=== PATIENT | male | born 1995 | race African-American/Black ===

== ENCOUNTER 2023-01-17 09:54 | Emergency (ER) | payer MEDICAID ==
[~2023-01-17] VITALS: Ht 175.3 cm; Wt 86.2 kg
[2023-01-17 10:00] VITALS: BP_SYST 141
--- NOTE | 2023-01-17 10:00 | NUR ---
BROUGHT BACK TO BED #5, TRIAGED, REPORT GIVEN TO KEY
--- NOTE | 2023-01-17 10:10 | NUR ---
DR MANN AT BEDSIDE FOR EVALUATION
--- NOTE | 2023-01-17 10:15 | NUR ---
Pt bib self from home, ambulated to bed 5. Pt is A&Ox4, able to make needs known. Pt c/o on and off lower back pain for two months. Pt rates pain 3/10 at this time. Pt describes pain as cramping. Pt states pain intensifies upon exertion. Pt denies N/V. Pt denies SOB. Safety measures in place.
[2023-01-17] MEDS ORDERED: METH-634 PO (11:28)
[2023-01-17 11:59] VITALS: BP_SYST 141
--- NOTE | 2023-01-17 12:00 | NUR ---
Patient given written and verbal discharge instructions and verbalizes understanding. ER Dr Sauceda discussed with patient the results and treatment provided. Patient in stable condition. ID arm band removed. Rx of Robaxin given. Patient educated on pain management and to follow up with PMD. Pain Scale 0/10. Opportunity for questions provided and answered. Medication side effect fact sheet provided.
== END 2023-01-17 12:00 | disposition home or self-care (01) ==
LOC: SED 09:54
DX: R25.2 Cramp and spasm (principal); M54.6 Pain in thoracic spine; R10.9 Unspecified abdominal pain; F17.200 Nicotine dependence, unspecified, uncomplicated; Z79.899 Other long term (current) drug therapy
CPT/HCPCS: 71045; 74018; 99284